=== PATIENT | female | born 1940 | race Hispanic/Latino ===

== ENCOUNTER 2017-05-27 15:09 | Emergency (ER) | payer OTHER ==
[~2017-05-27 15:09] MED LIST: AMLO5TAB2 PO; LISI40TA4 PO; METO200T49 PO; OMEP20CA10 PO; ROSU20TA PO; SERT25TA5 PO
[2017-05-27 15:44] LABS: BASOPHILS % (AUTO) 0.9 % (0.0-5.0); EOSINOPHILS % (AUTO) 0.3 % (0.0-8.0); HEMATOCRIT 38.1 % (36-48); LYMPHOCYTES % (AUTO) 22.1 % (21.0-51.0); MEAN CORPUSCULAR HEMOGLOBIN 30.6 pg (27.0-33.0); MEAN CORPUSCULAR HGB CONC 34.5 g/dL (32.0-36.0); MEAN CORPUSCULAR VOLUME 88.8 fL (79-99); MONOCYTES % (AUTO) 11.7 % (3.0-13.0); PLATELET COUNT (AUTO) 245 K/uL (130-400); RED CELL DISTRIBUTION WIDTH 13.6 % (11.0-15.5); WHITE BLOOD COUNT (AUTO) 5.2 K/uL (4.8-10.8)
[2017-05-27] MEDS ORDERED: SODIUM CHLORIDE 0.9% 500ML 500 ML IV ONE (15:55)
[2017-05-27] MEDS ORDERED: ONDANSETRON HCL MDV 20ML 2 MG/ML VIAL ONE (15:56)
[2017-05-27 16:03] LABS: INR 1.02 (0.85-1.15); PARTIAL THROMBOPLASTIN TIME 27.4 SEC (26.3-35.5); PROTHROMBIN TIME 10.7 SEC (9.6-11.6)
[2017-05-27 16:04] LABS: B-TYPE NATRIURETIC PEPTIDE 101 pg/mL (0-100)
[2017-05-27 16:34] LABS: CREATININE 1.1 mg/dL (0.5-1.5); POTASSIUM 3.9 mmol/L (3.5-5.1)
[2017-05-27 16:39] LABS: ALBUMIN 3.3 g/dL (3.5-5.0); BILIRUBIN,TOTAL 0.6 mg/dL (0.2-1.0); TOTAL PROTEIN, SERUM 7.4 g/dL (6.0-8.3)
== END 2017-05-27 19:21 | disposition home or self-care (01) ==
LOC: EDH 15:09
DX: I95.2 Hypotension due to drugs (principal); R53.1 Weakness
CPT/HCPCS: 36415; 71045; 80053; 82550; 83880; 84484; 85025; 85610; 85730; 93005; 96361; 96374; 99285; J7040

== ENCOUNTER → 2018-07-26 | Outpatient (CLI) | payer OTHER ==
[~2018-07-26] MED LIST changes: -AMLO5TAB2 PO; +AMLO5TAB9 PO; -ROSU20TA PO; +ROSU20TA23 PO
== END | disposition home or self-care (01) ==
LOC: OIH 09:58
PROVIDERS: ATTEND Family Medicine
DX: M25.512 Pain in left shoulder (principal)
CPT/HCPCS: 73030

== ENCOUNTER 2020-12-29 13:48 | Inpatient (IN) | payer OTHER ==
[~2020-12-29] VITALS: Ht 160 cm; Wt 64.7 kg
[~2020-12-29 13:48] MED LIST changes: +AMLO-257 PO; -AMLO5TAB9 PO; -LISI40TA4 PO; +LISI40TA9 PO; -OMEP20CA10 PO; +OMEP20CA12 PO; +SERT-438 PO; -SERT25TA5 PO
[2020-12-29] MEDS ORDERED: ASPIRIN 81MG CHEW TAB ONE (14:00)
[2020-12-29] MEDS ORDERED: ASPIRIN 81MG CHEW TAB PO ONE (14:00)
[2020-12-29 14:11] LABS: BASOPHILS % (AUTO) 0.3 % (0.0-5.0); EOSINOPHILS % (AUTO) 0.2 % (0.0-8.0); HEMATOCRIT 43.2 % (36-48); MEAN CORPUSCULAR HEMOGLOBIN 30.3 pg (27.0-33.0); MEAN CORPUSCULAR HGB CONC 32.9 g/dL (32.0-36.0); MEAN CORPUSCULAR VOLUME 92.3 fL (79-99); MONOCYTES % (AUTO) 7.4 % (3.0-13.0); NEUTROPHILS % (AUTO) 78.7 % (40.0-77.0); PLATELET COUNT (AUTO) 169 K/uL (130-400); RED BLOOD CELL COUNT(AUTO) 4.68 MIL/uL (4.00-5.50); RED CELL DISTRIBUTION WIDTH 13.5 % (11.0-15.5); WHITE BLOOD COUNT (AUTO) 13.6 K/uL (4.8-10.8)
[2020-12-29 14:17] LABS: APPEARANCE,URINE Clear (CLEAR); BILIRUBIN,URINE Negative (NEGATIVE); COLOR,URINE Yellow (YELLOW); GLUCOSE, URINE (UA) Negative (NEGATIVE); KETONES,URINE Negative (NEGATIVE); LEUKOCYTE ESTERASE ,URINE Trace (NEGATIVE); NITRATE,URINE Negative (NEGATIVE); OCCULT BLOOD,URINE Trace (NEGATIVE); PROTEIN,URINE POS 1+ mg/dL (NEGATIVE)
[2020-12-29 14:21] LABS: CREATININE 0.8 mg/dL (0.5-1.5)
[2020-12-29 14:22] LABS: INR 1.92 (0.85-1.15); PROTHROMBIN TIME 19.7 SEC (9.6-11.6)
[2020-12-29 14:23] LABS: BACTERIA,URINE Few /HPF (None Seen); SQUAMOUS EPITHELIAL CELL,UR Few /HPF (0-2)
[2020-12-29 14:23] LABS: PARTIAL THROMBOPLASTIN TIME 32.2 SEC (26.3-35.5)
[2020-12-29 14:24] LABS: MUCUS,URINE Few LPF (None Seen)
[2020-12-29 14:32] LABS: ALBUMIN 3.6 g/dL (3.5-5.0); BILIRUBIN,TOTAL 1.4 mg/dL (0.2-1.0); TOTAL PROTEIN, SERUM 7.8 g/dL (6.0-8.3)
[2020-12-29 14:33] LABS: B-TYPE NATRIURETIC PEPTIDE 173 pg/mL (0-100)
[2020-12-29] MEDS ORDERED: IPRATROPIUM/ALBUTEROL SULFATE 3 ML SOLUTION IH ONE ×2 (15:00→15:08)
[2020-12-29] MEDS ORDERED: SOLU-MEDROL 125MG VIAL IVP ONE (15:00)
[2020-12-29] MEDS ORDERED: LACTULOSE 20 GM/30 ML UDCUP PO PRN (16:00)
[2020-12-29] MEDS ORDERED: ONDANSETRON 4MG INJ IVP PRN (16:00)
[2020-12-29] MEDS ORDERED: HYDRALAZINE 20MG/ML VIAL IV PRN (16:00)
[2020-12-29] MEDS ORDERED: ACETAMINOPHEN 325 MG TAB PO PRN (16:00)
[2020-12-29] MEDS ORDERED: LABETALOL 20MG SYG IV PRN (16:00)
[2020-12-29 16:26] LABS: ABG BASE EXCESS -1.4 mmol/L (-2.0-3.0); ABG HCO3 22.6 mmol/L (21.0-28.0); ABG OXYGEN SATURATION 96.4 % (95.0-99.0); ABG PCO2 36 mmHg (32-45)
[2020-12-29] MEDS: INSULIN HUMULIN R 100 UNIT/ML 3ML SQ SCH ×2 (16:30→20:59)
[2020-12-29] MEDS: SOLU-MEDROL 125MG VIAL IVP SCH (16:30)
[2020-12-29] MEDS: IPRATROPIUM/ALBUTEROL SULFATE 3 ML SOLUTION IH SCH (18:29)
[2020-12-29] MEDS ORDERED: ROSU20TA31 PO (20:15)
[2020-12-29] MEDS ORDERED: ALBUHFA IH (20:15)
[2020-12-29] MEDS ORDERED: LISI40TA9 PO (20:15)
[2020-12-29] MEDS ORDERED: MEMA5TAB42 PO (20:15)
[2020-12-29] MEDS ORDERED: METO200T49 PO (20:15)
[2020-12-30] MEDS: IPRATROPIUM/ALBUTEROL SULFATE 3 ML SOLUTION IH SCH ×5 (00:06→23:46)
[2020-12-30] MEDS: SOLU-MEDROL 125MG VIAL IVP SCH ×3 (00:35→17:08)
[2020-12-30 05:40] LABS: CREATININE 0.8 mg/dL (0.5-1.5); MAGNESIUM 2.1 mg/dL (1.80-2.40); PHOSPHORUS 3.3 mg/dL (2.5-4.9); POTASSIUM 3.9 mmol/L (3.5-5.1)
[2020-12-30 05:42] LABS: HEMOGLOBIN A1C 5.8 % (4.0-6.0)
[2020-12-30 06:14] LABS: BASOPHILS % (AUTO) 0.1 % (0.0-5.0); HEMATOCRIT 39.8 % (36-48); LYMPHOCYTES % (AUTO) 9.3 % (21.0-51.0); MEAN CORPUSCULAR HEMOGLOBIN 30.3 pg (27.0-33.0); MEAN CORPUSCULAR HGB CONC 33.2 g/dL (32.0-36.0); MEAN CORPUSCULAR VOLUME 91.3 fL (79-99); MONOCYTES % (AUTO) 1.2 % (3.0-13.0); NEUTROPHILS % (AUTO) 88.8 % (40.0-77.0); PLATELET COUNT (AUTO) 167 K/uL (130-400); RED BLOOD CELL COUNT(AUTO) 4.36 MIL/uL (4.00-5.50); RED CELL DISTRIBUTION WIDTH 13.3 % (11.0-15.5); WHITE BLOOD COUNT (AUTO) 9.1 K/uL (4.8-10.8)
[2020-12-30] MEDS: INSULIN HUMULIN R 100 UNIT/ML 3ML SQ SCH ×4 (07:30→20:57)
[2020-12-30] MEDS: METOPROLOL SUCCINATE 50 MG TAB.SR.24H PO SCH (09:00)
[2020-12-30] MEDS: ATORVASTATIN 40 MG TABLET PO SCH (09:00)
[2020-12-30] MEDS: LISINOPRIL 40 MG TABLET PO SCH (09:00)
[2020-12-30] MEDS: ENOXAPARIN SODIUM 40 MG/0.4 ML SYRINGE SQ SCH (09:00)
[2020-12-30] MEDS: PANTOPRAZOLE 40 MG/VIAL IVP SCH (09:00)
[2020-12-30] MEDS: MEMANTINE HCL 5 MG TABLET PO SCH (09:00)
[2020-12-30] MEDS ORDERED: IOHEXOL 350 MG/ML 100ML INFUS..BTL IV ONE (09:09)
[2020-12-30 13:34] VITALS: BP 149/61
[2020-12-30 17:12] VITALS: BP 168/74
[2020-12-30 20:00] VITALS: BP 168/62
[2020-12-31] VITALS: BP 164/66
[2020-12-31] MEDS: SOLU-MEDROL 125MG VIAL IVP SCH ×2 (00:13→09:11)
[2020-12-31 04:00] VITALS: BP 103/38
[2020-12-31] MEDS: INSULIN HUMULIN R 100 UNIT/ML 3ML SQ SCH (06:00)
[2020-12-31] MEDS: IPRATROPIUM/ALBUTEROL SULFATE 3 ML SOLUTION IH SCH ×2 (06:32→11:02)
[2020-12-31 07:05] VITALS: BP_SYST 150; BP_SYST 171; BP_DIAS 62; BP_DIAS 84
[2020-12-31] MEDS: METOPROLOL SUCCINATE 50 MG TAB.SR.24H PO SCH (09:00)
[2020-12-31] MEDS: PANTOPRAZOLE 40 MG/VIAL IVP SCH (09:11)
[2020-12-31] MEDS: LISINOPRIL 40 MG TABLET PO SCH (09:12)
[2020-12-31] MEDS: MEMANTINE HCL 5 MG TABLET PO SCH (09:12)
[2020-12-31] MEDS: ATORVASTATIN 40 MG TABLET PO SCH (09:12)
[2020-12-31] MEDS: ENOXAPARIN SODIUM 40 MG/0.4 ML SYRINGE SQ SCH (09:13)
[2020-12-31 11:25] VITALS: BP 166/57
== END 2020-12-31 12:30 | disposition home or self-care (01) | DRG 190 ==
LOC: EDH 13:48 → OBSVTOIN 15:58 → EDHIP 15:58 → 3AH 12-30 10:30
PROVIDERS: ADMIT Internal Medicine; ATTEND Internal Medicine
PROC: 5A09357 Assistance with Respiratory Ventilation, Less than 24 Consecutive Hours, Continuous Positive Airway Pressure (ICD-10-PCS; principal; 2020-12-30)
DX: J44.0 Chronic obstructive pulmonary disease with (acute) lower respiratory infection (principal); J12.9 Viral pneumonia, unspecified; J44.1 Chronic obstructive pulmonary disease with (acute) exacerbation; Z20.822 Contact with and (suspected) exposure to COVID-19; F03.90 Unspecified dementia, unspecified severity, without behavioral disturbance, psychotic disturbance, mood disturbance, and anxiety; E78.00 Pure hypercholesterolemia, unspecified; I10 Essential (primary) hypertension; F32.A Depression, unspecified; K80.20 Calculus of gallbladder without cholecystitis without obstruction; K29.70 Gastritis, unspecified, without bleeding; F17.200 Nicotine dependence, unspecified, uncomplicated; Z71.6 Tobacco abuse counseling; Z79.899 Other long term (current) drug therapy; Z82.49 Family history of ischemic heart disease and other diseases of the circulatory system
CPT/HCPCS: 36415; 36600; 71045; 71275; 80048; 80053; 80061; 81001; 82550; 82803; 82948; 83036; 83735; 83874; 83880; 84100; 84145; 84484; 85025; 85378; 85610; 85730; 87635; 93005; 93970; 94640; 94664; 94667; 94668; C9113; G0378; J1650; J1815; J2930; Q9967

== ENCOUNTER 2021-03-18 23:20 | Emergency (ER) | payer OTHER ==
[~2021-03-18] VITALS: Ht 160 cm; Wt 70.8 kg
[~2021-03-18 23:20] MED LIST changes: +ALBUHFA IH; +HYDRALAZINE 20MG/ML VIAL IV ONE; +MEMA5TAB42 PO; +ROSU20TA31 PO
[2021-03-18 23:44] LABS: BASOPHILS % (AUTO) 0.8 % (0.0-5.0); EOSINOPHILS % (AUTO) 4.4 % (0.0-8.0); LYMPHOCYTES % (AUTO) 31.1 % (21.0-51.0); MEAN CORPUSCULAR HEMOGLOBIN 29.4 pg (27.0-33.0); MEAN CORPUSCULAR HGB CONC 31.7 g/dL (32.0-36.0); MEAN CORPUSCULAR VOLUME 92.8 fL (79-99); MONOCYTES % (AUTO) 8.7 % (3.0-13.0); NEUTROPHILS % (AUTO) 54.7 % (40.0-77.0); PLATELET COUNT (AUTO) 161 K/uL (130-400); RED BLOOD CELL COUNT(AUTO) 4.42 MIL/uL (4.00-5.50); RED CELL DISTRIBUTION WIDTH 13.8 % (11.0-15.5); WHITE BLOOD COUNT (AUTO) 6.3 K/uL (4.8-10.8)
[2021-03-18 23:45] LABS: APPEARANCE,URINE Clear (CLEAR); BILIRUBIN,URINE Negative (NEGATIVE); COLOR,URINE Yellow (YELLOW); GLUCOSE, URINE (UA) Negative (NEGATIVE); KETONES,URINE Negative (NEGATIVE); LEUKOCYTE ESTERASE ,URINE Negative (NEGATIVE); NITRATE,URINE Negative (NEGATIVE); OCCULT BLOOD,URINE Negative (NEGATIVE); PROTEIN,URINE Negative (NEGATIVE)
[2021-03-18 23:52] LABS: CREATININE 0.7 mg/dL (0.5-1.5)
[2021-03-18 23:57] LABS: ALBUMIN 3.5 g/dL (3.5-5.0); BILIRUBIN,TOTAL 0.6 mg/dL (0.2-1.0); TOTAL PROTEIN, SERUM 7.1 g/dL (6.0-8.3)
[2021-03-19] MEDS ORDERED: HYDRALAZINE 20MG/ML VIAL IV ONE
[2021-03-19 00:23] VITALS: BP 152/43
[2021-03-19] MEDS ORDERED: HYDR-3420 PO (00:56)
== END 2021-03-19 01:28 | disposition home or self-care (01) ==
LOC: EDH 23:20
DX: I16.0 Hypertensive urgency (principal); I10 Essential (primary) hypertension; E78.00 Pure hypercholesterolemia, unspecified; F03.90 Unspecified dementia, unspecified severity, without behavioral disturbance, psychotic disturbance, mood disturbance, and anxiety; Z79.899 Other long term (current) drug therapy
CPT/HCPCS: 36415; 71045; 80053; 81003; 84484; 85025; 93005; 96374; 99285; J0360

== ENCOUNTER 2021-03-26 19:04 | Emergency (ER) | payer OTHER ==
[~2021-03-26] VITALS: Ht 152.4 cm; Wt 63.5 kg
[~2021-03-26 19:04] MED LIST changes: +HYDR-3420 PO; -HYDRALAZINE 20MG/ML VIAL IV ONE
[2021-03-26] MEDS ORDERED: HYDRALAZINE 20MG/ML VIAL IV STA (19:40)
[2021-03-26 19:43] LABS: CREATININE 0.7 mg/dL (0.5-1.5); POTASSIUM 3.9 mmol/L (3.5-5.1)
[2021-03-26 19:46] LABS: BASOPHILS % (AUTO) 0.5 % (0.0-5.0); HEMATOCRIT 45.5 % (36-48); LYMPHOCYTES % (AUTO) 29.3 % (21.0-51.0); MEAN CORPUSCULAR HEMOGLOBIN 29.5 pg (27.0-33.0); MEAN CORPUSCULAR HGB CONC 32.3 g/dL (32.0-36.0); MEAN CORPUSCULAR VOLUME 91.4 fL (79-99); MONOCYTES % (AUTO) 6.7 % (3.0-13.0); NEUTROPHILS % (AUTO) 60.1 % (40.0-77.0); PLATELET COUNT (AUTO) 236 K/uL (130-400); RED BLOOD CELL COUNT(AUTO) 4.98 MIL/uL (4.00-5.50); RED CELL DISTRIBUTION WIDTH 13.9 % (11.0-15.5); WHITE BLOOD COUNT (AUTO) 10.4 K/uL (4.8-10.8)
[2021-03-26] MEDS ORDERED: HYDRALAZINE 20MG/ML VIAL ONE (19:46)
[2021-03-26 19:53] LABS: ALBUMIN 3.9 g/dL (3.5-5.0); BILIRUBIN,TOTAL 0.7 mg/dL (0.2-1.0); TOTAL PROTEIN, SERUM 7.7 g/dL (6.0-8.3)
[2021-03-27 01:04] VITALS: BP 163/52
== END 2021-03-27 01:38 | disposition home or self-care (01) ==
LOC: EDH 19:04
DX: I16.0 Hypertensive urgency (principal); I10 Essential (primary) hypertension; E78.00 Pure hypercholesterolemia, unspecified; F03.90 Unspecified dementia, unspecified severity, without behavioral disturbance, psychotic disturbance, mood disturbance, and anxiety; Z87.891 Personal history of nicotine dependence; Z79.899 Other long term (current) drug therapy
CPT/HCPCS: 36415; 71045; 80053; 84484; 85025; 93005; 96374; 99291; J0360

== ENCOUNTER → 2022-01-17 | Outpatient (CLI) | payer OTHER ==
[~2022-01-17] MED LIST changes: +IOHEXOL-350 50ML VIAL IV ONE
== END | disposition home or self-care (01) ==
LOC: RAH 09:11
PROVIDERS: ATTEND Family Medicine
DX: R91.1 Solitary pulmonary nodule (principal); K80.20 Calculus of gallbladder without cholecystitis without obstruction
CPT/HCPCS: 71270; Q9967

== ENCOUNTER 2022-01-31 19:49 | Emergency (ER) | payer OTHER ==
[~2022-01-31] VITALS: Ht 157.5 cm; Wt 65.3 kg
[~2022-01-31 19:49] MED LIST changes: -IOHEXOL-350 50ML VIAL IV ONE
[2022-01-31 20:05] LABS: BASOPHILS % (AUTO) 0.5 % (0.0-5.0); LYMPHOCYTES % (AUTO) 28.2 % (21.0-51.0); MEAN CORPUSCULAR HEMOGLOBIN 28.6 pg (27.0-33.0); MEAN CORPUSCULAR HGB CONC 32.6 g/dL (32.0-36.0); MEAN CORPUSCULAR VOLUME 87.8 fL (79-99); MONOCYTES % (AUTO) 8.7 % (3.0-13.0); NEUTROPHILS % (AUTO) 60.2 % (40.0-77.0); PLATELET COUNT (AUTO) 256 K/uL (130-400); RED BLOOD CELL COUNT(AUTO) 4.33 MIL/uL (4.00-5.50); RED CELL DISTRIBUTION WIDTH 14.2 % (11.0-15.5); WHITE BLOOD COUNT (AUTO) 9.7 K/uL (4.8-10.8)
[2022-01-31 20:15] LABS: POTASSIUM 4.1 mmol/L (3.5-5.1)
[2022-01-31 20:19] LABS: TOTAL PROTEIN, SERUM 7.5 g/dL (6.0-8.3)
[2022-01-31 22:27] VITALS: BP 116/74
[2022-02-01] MEDS ORDERED: CEFUROXIME AXETIL 250 MG TABLET PO STA (00:27)
[2022-02-01] MEDS ORDERED: IPRATROPIUM/ALBUTEROL SULFATE 3 ML SOLUTION IH ONE (00:30)
[2022-02-01] MEDS ORDERED: ALBU90AE2 IH (00:31)
[2022-02-01] MEDS ORDERED: CEFU500T67 PO (00:31)
== END 2022-02-01 01:26 | disposition home or self-care (01) ==
LOC: EDH 19:49
DX: J44.1 Chronic obstructive pulmonary disease with (acute) exacerbation (principal); I10 Essential (primary) hypertension; G30.9 Alzheimer's disease, unspecified; F17.200 Nicotine dependence, unspecified, uncomplicated; Z79.899 Other long term (current) drug therapy; Z20.822 Contact with and (suspected) exposure to COVID-19
CPT/HCPCS: 99285; 84484 ×2; 80053; 85025; 87804 ×2; 36415; 87635; 71045; 93005 ×3; 94640; C9803

== ENCOUNTER 2022-11-10 20:16 | Observation (INO) | payer OTHER ==
[~2022-11-10] VITALS: Ht 154.9 cm; Wt 63.9 kg
[~2022-11-10 20:16] MED LIST changes: +ALBU90AE2 IH; +CEFU500T67 PO; -ROSU20TA31 PO; +ROSU20TA73 PO
[2022-11-10 20:44] LABS: BASOPHILS # (AUTO) 0.05 K/uL (0.00-0.20); BASOPHILS % (AUTO) 0.5 % (0.0-5.0); EOSINOPHILS # (AUTO) 0.31 K/uL (0.00-0.70); EOSINOPHILS % (AUTO) 3.2 % (0.0-8.0); HEMATOCRIT 43.5 % (36-48); IMMATURE GRANULOCYTE ABSOLUTE 0.02 K/uL (0-1); LYMPHOCYTES # (AUTO) 3.4 K/uL (1.0-4.8); LYMPHOCYTES % (AUTO) 34.6 % (21.0-51.0); MEAN CORPUSCULAR HEMOGLOBIN 29.9 pg (27.0-33.0); MEAN CORPUSCULAR HGB CONC 31.7 g/dL (32.0-36.0); MEAN CORPUSCULAR VOLUME 94.2 fL (79-99); MONOCYTES # (AUTO) 0.7 K/uL (0.1-1.0); MONOCYTES % (AUTO) 7.1 % (3.0-13.0); NEUTROPHILS # (AUTO) 5.3 K/uL (1.8-7.7); NEUTROPHILS % (AUTO) 54.4 % (40.0-77.0); PLATELET COUNT (AUTO) 190 K/uL (130-400); RED BLOOD CELL COUNT(AUTO) 4.62 MIL/uL (4.00-5.50); RED CELL DISTRIBUTION WIDTH 14.3 % (11.0-15.5); WHITE BLOOD COUNT (AUTO) 9.8 K/uL (4.8-10.8)
[2022-11-10 20:57] LABS: CREATININE 0.9 mg/dL (0.5-1.5); POTASSIUM 4.5 mmol/L (3.5-5.1)
[2022-11-10] MEDS ORDERED: ASPIRIN 325MG TAB PO ONE (21:00)
[2022-11-10] MEDS ORDERED: NITROGLYCERIN 1GM OINT 1 INCH/1GM TD ONE (21:00)
[2022-11-10 21:05] LABS: B-TYPE NATRIURETIC PEPTIDE 211 pg/mL (0-100)
[2022-11-10 21:06] LABS: ALBUMIN 3.7 g/dL (3.5-5.0); BILIRUBIN,TOTAL 0.5 mg/dL (0.2-1.0); TOTAL PROTEIN, SERUM 7.6 g/dL (6.0-8.3)
[2022-11-10] MEDS ORDERED: HYDRALAZINE 20MG/ML VIAL IV ONE (22:00)
[2022-11-10] MEDS ORDERED: HYDRALAZINE 20MG/ML VIAL IV PRN (22:30)
[2022-11-10] MEDS ORDERED: FUROSEMIDE 20MG VIAL IV ONE (22:30)
[2022-11-10] MEDS ORDERED: GLUCAGON 1MG KIT 1 MG ML IM PRN (22:30)
[2022-11-10] MEDS ORDERED: NON-FORMULARY MEDICATION 1 EACH (Albuterol Sulfate (Ventolin Hfa/Proventil Hfa/Proair Hfa) IH PRN (22:30)
[2022-11-10] MEDS ORDERED: POTASSIUM CHLORIDE 10% ELIXIR 20 MEQ/15 ML UDCUP PO PRN (22:30)
[2022-11-10] MEDS ORDERED: DEXTROSE 50%-WATER 50 ML DISP.SYRIN IV PRN (22:30)
[2022-11-10] MEDS ORDERED: MAGNESIUM 2GM PREMIX 50ML 50 ML IV PRN (22:30)
[2022-11-10] MEDS ORDERED: POTASSIUM CHLORIDE 20MEQ/100ML 100 ML IV PRN (22:30)
[2022-11-10] MEDS ORDERED: LACTATED RINGERS 1000ML 1,000 ML IV SCH (22:30)
[2022-11-10 22:40] LABS: APPEARANCE,URINE CLEAR (CLEAR); BILIRUBIN,URINE NEGATIVE (NEGATIVE); COLOR,URINE LIGHT-YELLOW (YELLOW); GLUCOSE, URINE (UA) NEGATIVE (NEGATIVE); KETONES,URINE NEGATIVE (NEGATIVE); LEUKOCYTE ESTERASE ,URINE NEGATIVE Leu/uL (NEGATIVE); NITRATE,URINE NEGATIVE (NEGATIVE); OCCULT BLOOD,URINE NEGATIVE (NEGATIVE); PROTEIN,URINE NEGATIVE (NEGATIVE); UROBILINOGEN,URINE 0.2 mg/dL (0.2-1.0)
[2022-11-10 22:48] LABS: ADD UA MICROSCOPIC NO
[2022-11-10] MEDS ORDERED: ALBUTEROL 0.083% 2.5 MG/3 ML INH IH PRN (23:00)
[2022-11-10 23:17] VITALS: PULSE 66; RESP 14
[2022-11-10] MEDS: IPRATROPIUM/ALBUTEROL SULFATE 3 ML SOLUTION IH SCH (23:17)
[2022-11-10 23:23] VITALS: PULSE 66; RESP 14; O2SAT 96
[2022-11-11] VITALS (9 sets, daily range): BP systolic 141–166; BP diastolic 49–66; PULSE 58–70; RESP 14–20; O2SAT 95–97
[2022-11-11 05:47] LABS: MEAN CORPUSCULAR HEMOGLOBIN 30.1 pg (27.0-33.0); MEAN CORPUSCULAR HGB CONC 32.3 g/dL (32.0-36.0); MEAN CORPUSCULAR VOLUME 93.1 fL (79-99); RED BLOOD CELL COUNT(AUTO) 4.19 MIL/uL (4.00-5.50); RED CELL DISTRIBUTION WIDTH 14.4 % (11.0-15.5); WHITE BLOOD COUNT (AUTO) 9.3 K/uL (4.8-10.8)
[2022-11-11 06:21] LABS: CREATININE 0.7 mg/dL (0.5-1.5); PHOSPHORUS 3.5 mg/dL (2.5-4.9); POTASSIUM 3.7 mmol/L (3.5-5.1)
[2022-11-11] MEDS: IPRATROPIUM/ALBUTEROL SULFATE 3 ML SOLUTION IH SCH ×2 (06:34→12:09)
[2022-11-11 06:40] LABS: SARS-CoV-2, RNA, NAAT NEGATIVE SARS CoV-2 (NEGATIVE)
[2022-11-11 06:44] LABS: INFLUENZA TYPE A Negative For Type A (NEGATIVE); INFLUENZA TYPE B Negative For Type B (NEGATIVE)
[2022-11-11] MEDS ORDERED: METOPROLOL SUCCINATE 50 MG TAB.SR.24H PO SCH (09:00)
[2022-11-11] MEDS ORDERED: NON-FORMULARY MEDICATION 1 EACH (Metoprolol Succinate 200 MG) PO SCH (09:00)
[2022-11-11] MEDS ORDERED: MEMANTINE HCL 5 MG TABLET PO SCH (09:00)
[2022-11-11] MEDS ORDERED: NON-FORMULARY MEDICATION 1 EACH (Omeprazole 20 MG) PO SCH (09:00)
[2022-11-11] MEDS ORDERED: NON-FORMULARY MEDICATION 1 EACH (Rosuvastatin Calcium 20 MG) PO SCH (09:00)
[2022-11-11] MEDS ORDERED: LISINOPRIL 40 MG TABLET PO SCH (09:00)
[2022-11-11] MEDS ORDERED: PANTOPRAZOLE 40 MG TAB DR PO SCH (09:00)
[2022-11-11] MEDS: KCL 20 MEQ ERTAB PO PRN ×2 (09:58→12:07)
[2022-11-11] MEDS ORDERED: LEVOFLOXACIN 500 MG/D5W 100 ML 100 ML IV SCH (12:30)
[2022-11-11] MEDS ORDERED: METRONIDAZOLE 500MG/100ML BAG 100 ML IVPB SCH (14:00)
[2022-11-11] MEDS ORDERED: ALBUHFA IH (16:32)
[2022-11-11] MEDS ORDERED: ASPI-1197 PO (16:36)
[2022-11-11] MEDS ORDERED: ATORVASTATIN 40 MG TABLET PO SCH (21:00)
[2022-11-12] MEDS ORDERED: LEVOFLOXACIN 250 MG/D5W 50ML 50 ML IVPB SCH (12:30)
== END 2022-11-11 17:30 | disposition home or self-care (01) ==
LOC: EDH 20:16 → EDHIP 22:19 → 4BH 11-11 02:25
PROVIDERS: ADMIT Internal Medicine Critical Care Medicine; ATTEND Internal Medicine Critical Care Medicine
DX: I16.0 Hypertensive urgency (principal); Z20.822 Contact with and (suspected) exposure to COVID-19; E78.5 Hyperlipidemia, unspecified; J44.9 Chronic obstructive pulmonary disease, unspecified; I65.21 Occlusion and stenosis of right carotid artery; I10 Essential (primary) hypertension; F17.210 Nicotine dependence, cigarettes, uncomplicated; F02.80 Dementia in other diseases classified elsewhere, unspecified severity, without behavioral disturbance, psychotic disturbance, mood disturbance, and anxiety; R47.1 Dysarthria and anarthria; G30.9 Alzheimer's disease, unspecified; R20.2 Paresthesia of skin; Z79.899 Other long term (current) drug therapy; Z98.890 Other specified postprocedural states
CPT/HCPCS: 94664; 96361; 96375; 99285; 82550 ×3; 83874 ×3; 84484 ×4; 80053; 83880; 85025; 81003; 36415 ×2; 71045; 70450; 93005 ×2; 94640 ×3; 96365; 70544; 96366; 96368; 83735; 84100; 80048; 85027; 87804 ×2; 87635; 93306; 93356; 93880; 70551; 70547; 97161; 97116; 92522; 92610; G0378 ×15; J0360; J1940; J1956; J3490